=== PATIENT | female | born 1980 | race Caucasian/White ===

== ENCOUNTER → 2018-04-16 12:04 | Outpatient (CLI) | payer OTHER, SELFPAY ==
--- NOTE | 2018-04-16 | DI.US.S_ITS ---
PROCEDURE: US OB <= 14 WEEKS FETUS INDICATIONS: INITIAL SIZING AND DATING OUTSIDE/PRIOR DATING DATA: Last menstrual period (LMP): 03/06/18. LMP-based estimated date of delivery (HILARIO): 12/11/18. First dating scan (date and location): This study, 04/16/18. Estimated date of delivery (HILARIO) from first dating scan: 12/10/18. TECHNIQUE: Real-time scanning was performed of the fetus and maternal pelvic organs, with image documentation. Endovaginal scanning was also performed to better visualize the fetus and maternal ovaries. COMPARISON: None. FINDINGS: Embryo: Heart rate 101 beats per minute, crown-rump length 3.4 mm which correlates with a gestational age of 6 weeks 0 days, plus or -5 days Measurement variability in dating: +/- 4 weeks by LMP, +/- 7 days by mean sac diameter (use before 6 weeks gestation if crown-rump length not able to be measured), +/- 5 days by crown-rump length (up to 8 weeks 6 days gestation), +/- 7 days by crown-rump length (up to 13 weeks 6 days gestation). Maternal organs: Ovaries normal considering gestational status. Limited images through the kidneys demonstrate no hydronephrosis. IMPRESSION: 6 week 0 day gestational age with delivery date scheduled to be centered on 12/10/18, + or -5 days. Followup anatomic survey at approximately 21 weeks gestation is recommended. Dictated by: Jos Pelaez M.D. on 04/16/2018 at 15:09 Approved by: Jos Pelaez M.D. on 04/16/2018 at 15:17
== END ==
PROVIDERS: PCP Family Medicine; Visit Provider Registered Nurse
DX: Z34.91 Encounter for supervision of normal pregnancy, unspecified, first trimester (principal); Z3A.01 Less than 8 weeks gestation of pregnancy
CPT/HCPCS: 76801; 76817